=== PATIENT | male | born 1960 | race Caucasian/White ===

== ENCOUNTER 2024-12-03 06:22 | Observation (INO) ==
--- NOTE | 2024-11-04 14:08 | PAT Medication Instructions ---
Medication Instructions Date of Service November 04, 2024 Home Medications alprazolam 0.5 mg tablet (Xanax) 0.5 mg PO BID PRN Anxiety omega 2-kyd-dng-fish oil 1,000 mg (120 mg-180 mg) capsule (Fish Oil) 1 cap PO QAM ramipril 5 mg capsule 5 mg PO QAM simvastatin 40 mg tablet 40 mg PO HS zinc 50 mg tablet 50 mg PO QAM ascorbic acid (vitamin C) 500 mg tablet (Vitamin C) 500 mg PO QAM aspirin 81 mg tablet,delayed release 81 mg PO HS cholecalciferol (vitamin D3) 125 mcg (5,000 unit) tablet (Vitamin D3) 125 mcg PO QAM vitamin B complex 1 tab PO QAM metoprolol succinate 25 mg tablet,extended release 24 hr 25 mg PO QAM tamsulosin 0.4 mg capsule 0.4 mg PO QAM MEDICATION INSTRUCTIONS: ASK your prescriber and surgeon aspirin 81 mg tablet,delayed release 81 mg PO HS STOP taking 2 weeks before surgery omega 7-jmy-npr-fish oil 1,000 mg (120 mg-180 mg) capsule (Fish Oil) 1 cap PO QAM DO NOT take the morning of surgery cholecalciferol (vitamin D3) 125 mcg (5,000 unit) tablet (Vitamin D3) 125 mcg PO QAM zinc 50 mg tablet 50 mg PO QAM ramipril 5 mg capsule 5 mg PO QAM ascorbic acid (vitamin C) 500 mg tablet (Vitamin C) 500 mg PO QAM vitamin B complex 1 tab PO QAM Take morning of surgery With a small sip of water, OTHERWISE NOTHING TO EAT OR DRINK AFTER MIDNIGHT: alprazolam 0.5 mg tablet (Xanax) 0.5 mg PO BID PRN Anxiety metoprolol succinate 25 mg tablet,extended release 24 hr 25 mg PO QAM tamsulosin 0.4 mg capsule 0.4 mg PO QAM Take evening before surgery alprazolam 0.5 mg tablet (Xanax) 0.5 mg PO BID PRN Anxiety simvastatin 40 mg tablet 40 mg PO HS Other Notes If you have any questions please call us at [phone] or [phone] or [phone] or [phone]
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
[2024-12-03] MEDS ORDERED: LARYING-O-JET KIT (LTA) ONE (06:28)
[2024-12-03] MEDS: ACETAMINOPHEN 500 MG TAB PO SCH (06:33)
[2024-12-03] MEDS: CeleBREX 200 MG CAP PO SCH (06:33)
[2024-12-03] MEDS: GABAPENTIN 300 MG CAP PO SCH (06:34)
[2024-12-03] MEDS ORDERED: PROPOFOL IV EMULSION 10 MG/ML 100 ML VIAL IV ONE ×2 (06:35→07:03)
[2024-12-03] MEDS ORDERED: PROPOFOL IV EMULSION 10 MG/ML 20 ML VIAL IV ONE (06:35)
[2024-12-03] MEDS ORDERED: SUCCINYLCHOLINE CHLORIDE 20 MG/ML 10 ML VIAL IV ONE (06:38)
[2024-12-03] MEDS ORDERED: LIDOCAINE 2% 2 ML VIAL/AMP(20MG/ML) INFIL ONE (06:38)
[2024-12-03] MEDS ORDERED: ROCURONIUM BROMIDE 10 MG/ML 5 ML VIAL IV ONE (06:38)
[2024-12-03] MEDS ORDERED: MIDAZOLAM HCL 1 MG/ML 2ML VIAL ONE (06:42)
[2024-12-03] MEDS ORDERED: DEXAMETHASONE SOD INJ 4 MG/ML VIAL ONE (06:42)
[2024-12-03] MEDS ORDERED: KETAMINE HCL 10MG/ML SYR ONE (06:42)
[2024-12-03] MEDS ORDERED: GLYCOPYRROLATE 0.2 MG/ML VIAL ONE (06:42)
[2024-12-03] MEDS ORDERED: PHENYLEPHRINE HCL 10 MG/ML VIAL ONE (06:50)
[2024-12-03] MEDS ORDERED: REMIFENTANIL HCL 1 MG VIAL IV ONE (06:57)
[2024-12-03] MEDS: LR 15ML/HR IV SCH (07:20)
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
[2024-12-03] MEDS: LR 60ML/HR IV SCH (07:31)
--- NOTE | 2024-12-03 07:49 | History & Physical Bridge Note ---
Date of Service December 03, 2024 History & Physical Bridge Note I have examined the patient, reviewed the History & Physical and in the interval since the performance of the History & Physical I have noted the following changes of clinical significance: no changes noted
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
[2024-12-03] MEDS: ceFAZolin 330 MG/ML 1 GM VIAL ONE (08:45)
[2024-12-03] MEDS ORDERED: HYDROmorphone INJ 2 MG/ML SYR/VIAL ONE (08:52)
[2024-12-03] MEDS ORDERED: ONDANSETRON INJ 2 MG/ML 2 ML VIAL ONE (09:03)
[2024-12-03] MEDS ORDERED: SUGAMMADEX SODIUM 200 MG/2 ML VIAL IV ONE (09:05)
--- NOTE | 2024-12-03 09:13 | Operative Report ---
Post Operative Report Pre & Post Diagnosis Operation Date: 12/03/24 07:45 Pre-Op Diagnosis: Cervical spinal stenosis with myeloradiculopathy same Post-Op Diagnosis: Same I identified the patient and participated in the time-out.: Yes Procedure Operation Date: 12/03/24 07:45 Actual Procedures #1 anterior cervical discectomy C4-C5 with bilateral foraminotomies. #2 anterior cervical disease to C4-5. #3 placement Spira 8 mm cage filled with os design bone graft C4-C5. #4 application of cage completed screws across C4-C5. Surgeon Fernando Morales, Shift Mechanic Gabriela Sorenson Estimated Blood Loss 10 Findings Consistent with Post-Op Diagnosis Specimens None Indications This is a 64-year-old male presents publish diagnosis of failed course of nonoperative care is here for surgical invention. Description of Procedure Patient was met with identified informed consent obtained. Patient was then taken to the operative suite underwent the patient placed in supine position on the Neal table with the head [place] head ordered. All bony prominences well-padded I suspected to ensure no external pressure placed upon them. This point the anterior cervical spine was prepped and draped in normal sterile fashion. The assistance of fluoroscopy identified the C4-C5 disc base and a transverse incision was placed on the right anterior aspect of the cervical spine overlying his region. Blunt dissection with the assistance of bipolar cautery performed down to exposing the anterior cervical spine at C4-C5. Sterile tray and retractors placed. Then performed a complete discectomy of C4- C5 out to the uncovertebral joints bilaterally. Briggs distraction pins utilized to assist in visualization. Removed all posterior annular fibers longitudinal ligament bilateral foraminotomies were performed. Endplates burred to subcortical bony bone and 9 mm spiral cage filled with os design bone graft tapped in position. Distractor apparatus was removed. All anterior osteophytes burred to a smooth cortical surface and a K2 M plate and screws applied with the assistance of fluoroscopy. Incision was then copiously irrigated explored to ensure no damage surrounding structures remaining bleeding. 10 round MASSIEL drain inserted. The incision was then closed with 2 Vicryl in the fascia and a 4 Monocryl for final skin closure. Steri-Strips and sterile dressing placed. Patient waken taken to PACU in stable condition. Please note spinal cord monitoring visualized at the procedure no changes noted. Gabriela Sorenson was present at the entire surgery and on the patient positioning complex portion of the surgery and final skin closure. I attest to the content of the Intraoperative Record and any orders documented therein. Any exceptions are noted below.
[2024-12-03] MEDS ORDERED: ePHEDrine sulfate 50 MG/5 ML SYR ONE (09:18)
[2024-12-03] MEDS ORDERED: HYDROmorphone INJ 1 MG/ML SYRINGE IV PRN (09:20)
[2024-12-03] MEDS ORDERED: ONDANSETRON INJ 2 MG/ML 2 ML VIAL IV PRN ×2 (09:20→12:28)
[2024-12-03] MEDS ORDERED: HYDROmorphone INJ 2 MG/ML SYR/VIAL IV PRN (09:20)
[2024-12-03] MEDS ORDERED: ATROPINE SULFATE 0.1 MG/ML 10ML SYR IV PRN (09:20)
[2024-12-03] MEDS: FLOSEAL HEMOSTATIC MATRIX 10ML TOP ONE (09:22)
--- NOTE | 2024-12-03 10:02 | Fluoroscopy Report ---
FL cervical 2-3V CLINICAL HISTORY: C4-5 DISCECTOMY FUSION COMPARISON STUDY: No previous studies for comparison. Fluoroscopy time: 11 seconds. Number of fluoroscopic images: 2. Ka,r: 1.48 mGy. FINDINGS: Fluoroscopy was provided during C4-C5 anterior discectomy and fusion with interbody spacer placement. A linear radiodensity consistent with surgical sponge is present on the initial image. Thi s is not evident on the subsequent image. Surgical drain is in place. IMPRESSION: Fluoroscopy provided during C4-C5 anterior discectomy and fusion. ACT 112: Negative or not required by law. Electronically signed by: Tello Cox M.D. 12/03/2024 10:01 AM
--- NOTE | 2024-12-03 11:09 | Anesthesiology Progress Note ---
Date of Service December 03, 2024 Anesthesia Post Procedure Vital Signs Vital Signs: Temp Pulse Resp BP Pulse Ox O2 Del Method O2 Flow Rate 12/03/24 10:45 36.3 C L 61 12 124/63 94 Nasal Cannula 2 12/03/24 10:35 59 L 10 L 125/68 96 Nasal Cannula 2 12/03/24 10:25 62 14 114/71 96 Nasal Cannula 2 12/03/24 10:15 74 18 135/59 L 95 Room Air 12/03/24 10:05 70 13 132/65 96 Oxymask 2 12/03/24 09:55 67 10 L 116/56 L 96 Oxymask 2 12/03/24 09:45 70 16 127/61 98 Oxymask 4 12/03/24 09:37 36.0 C L 76 15 118/63 98 Oxymask 6 12/03/24 06:16 36.5 C 67 20 136/87 94 Room Air Pain Intensity Posterior Neck: Pain Intensity: 4 Transfer of Care Handoff Completed per policy Notes Mental Status: alert / awake / arousable Patient Amnestic to Procedure: Yes Nausea / Vomiting: adequately controlled Pain: adequately controlled Airway Patency, RR, SpO2: stable & adequate BP & HR: stable & adequate Hydration State: stable & adequate Anesthetic Complications: no major complications apparent and Pt Satisfied with anesthetic care
[2024-12-03] MEDS ORDERED: DO NOT ADMINISTER PNEUMOCOCCAL VACCINE PRN (12:28)
[2024-12-03] MEDS ORDERED: SOD PHOSPHATE/SOD BIPHOSPHATE ENEMA 132 ML BTL PR PRN (12:28)
[2024-12-03] MEDS ORDERED: MAGNESIUM HYDROXIDE SUSP 30 ML UDC PO PRN (12:28)
[2024-12-03] MEDS ORDERED: ALUMINUM/MAGNESIUM SUSP 30 ML UDC PO PRN (12:28)
[2024-12-03] MEDS ORDERED: RACEPINEPHRINE 2.25% NEBU SOLN 0.5 ML VIAL INH PRN (12:28)
[2024-12-03] MEDS ORDERED: PROMETHAZINE 12.5 MG/50.5 ML BAG IV PRN (12:28)
[2024-12-03] MEDS ORDERED: LORazepam 0.5 MG TAB PO PRN (12:28)
[2024-12-03] MEDS ORDERED: FAMOTIDINE 20 MG TAB PO PRN (12:28)
[2024-12-03] MEDS ORDERED: NALOXONE HCL 0.4 MG/1 ML VIAL/CARP IV PRN (12:28)
[2024-12-03] MEDS ORDERED: HYDROmorphone INJ 0.5 MG/0.5 ML SYR IV PRN (12:28)
[2024-12-03] MEDS ORDERED: ONDANSETRON 4 MG OD TAB PO PRN (12:28)
[2024-12-03] MEDS ORDERED: DO NOT ADMINISTER FLU VACCINE PRN (12:28)
[2024-12-03] MEDS ORDERED: METOCLOPRAMIDE HCL INJ 5 MG/ML 2 ML VIAL IV PRN (12:28)
[2024-12-03] MEDS ORDERED: diphenhydrAMINE Capsule 25 MG CAP PO PRN (12:28)
[2024-12-03] MEDS ORDERED: dexAMETHasone 8 MG in SYRINGE 0 ML IV PRN (12:28)
[2024-12-03] MEDS: LACTATED RINGER'S 1,000 ML IV SCH (12:51)
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
[2024-12-03] MEDS: HYDROmorphone INJ 1 MG/ML SYRINGE IV PRN (13:43)
[2024-12-03] MEDS ORDERED: ACETAMINOPHEN 1,000 MG/100 ML VIAL IV PRN (14:00)
[2024-12-03] MEDS: dexAMETHasone 6 MG in SYRINGE 0 ML IV SCH (14:52)
[2024-12-03] MEDS: ACETAMINOPHEN 500 MG TAB PO PRN (19:17)
[2024-12-03] MEDS: DOCUSATE SODIUM/SENNA 50/8.6MG TAB PO SCH (21:11)
[2024-12-03] MEDS: ASPIRIN 81 MG ECTAB PO SCH (21:11)
[2024-12-03] MEDS: SIMVASTATIN 40 MG TAB PO SCH (21:12)
[2024-12-04 03:12] VITALS: RESP 18
[2024-12-04] MEDS: POLYETHYLENE (MIRALAX) 17 GM PACK PO SCH (06:03)
[2024-12-04 07:22] LABS: Hematocrit (blood only) 46.6 % (42.0-52.0); Hemoglobin 15.7 g/dl (14.0-18.0); Mean Corpuscular Hemoglobin 31.0 pg (25.0-34.0); Mean Corpuscular Volume 91.9 fL (80.0-100.0); Platelet Count 192 K/uL (130-400); RDW Standard Deviation 45.0 fL (36.4-46.3); Red Blood Count 5.07 M/uL (4.70-6.10); White Blood Count 10.63 K/ul (4.8-10.8)
--- NOTE | 2024-12-04 07:40 | Hospitalist Progress Note ---
Date of Service December 04, 2024 Assessment & Plan (1) Cervical stenosis of spinal canal: (2) Status post cervical spinal fusion: (3) CAD (coronary artery disease): (4) Hypertension: (5) Hyperlipidemia: (6) Anxiety: (7) Sleep apnea: Plan 64y/o M with PMHx significant for inferior STEMI and obstructive CAD s/p stenting (2002), hypertension, hyperlipidemia, polycythemia vera, MEREDITH not on CPAP, fatty liver, anxiety and cervical spinal stenosis who underwent anterior cervical discectomy and fusion of C4-C5 on 12/03/[address] Morales. We have been consulted for postoperative medical management. Cervical stenosis of spinal canal s/p C4-C5 ACDF POD#1 anterior cervical discectomy and fusion of C4-C5 on 12/03/[address] Morales Activity level, pain control, DVT prophylaxis, bowel regimen, wound/drain care per primary team Encourage incentive spirometer CAD Hyperlipidemia Continue aspirin, metoprolol, ramipril and simvastatin Hypertension Continue ramipril and amlodipine Anxiety Continue alprazolam PRN DVT Prophylaxis: As per primary service Disposition: DC planning as per primary service --> pt mentioned being DC today Thank you for this consultation. We will continue to follow this patient with you. A member of the [facility]ist team is available 31/10 via the role in Tiger[employer] - please don't hesitate to reach out with questions. Patient seen in collaboration with Dr. Matthews. Please see addendum. I spent a total of 26 minutes coordinating, documenting, and providing care for this patient excluding time spent in the performance of separately billed services or time spent by another provider/QHP. This included personally reviewing all current laboratories and imaging studies, medical reconciliation, outpatient chart review and discussion with specialists. This chart was completed in part utilizing Speech Voice Recognition Software. Grammatical errors, random word insertions, pronoun errors, and incomplete sentences are an occasional consequence of this system due to software limitations, ambient noise, and hardware issues. Any formal questions or concerns about the content, text, or information contained within the body of this dictation should be directly addressed to the provider for clarification. Admission and Anticipated Discharge Date Admission Date: December 03, 2024 Supervising Physician Co-Signing Physician Notes Patient seen and examined Agree with findings and plan as detailed by Elissa Hartmann PA-C Subjective Pt seen and examined in room 320-1. Feeling well postoperatively, pain adequately controlled. Denies any SOB or difficulty breathing. Mentions possible discharge home today per his prior discussion with Dr. Morales. Discussed his labs from this AM. Review of Systems Review of Systems: At least ten systems reviewed and negative, except as noted in the subjective section. Physical Exam Physical Exam: General: WD/WN, NAD, sitting up in chair at bedside, pleasant, A&Ox3 HEENT: Oropharynx normal, C-collar in place, surgical dressing on anterior aspect of neck C/D/I Respiratory: Normal respiratory effort, CTAB Cardiovascular: RRR, normal peripheral pulses, no BLE edema Abdomen/GI: Normal bowel sounds, soft, nontender to palpation in all quadrants Extremities/MSK: No cyanosis or clubbing, extremities motor strength intact, moves all extremities Neurologic: No overt focal deficits, CN's II-XI not formally tested but appear grossly intact bilaterally Results & Data Results & Data Vital Signs (Past 12 Hours) Vital Signs Temp Pulse Resp BP Pulse Ox O2 Del Method O2 Flow Rate 12/04/24 07:18 71 18 98 Room Air 12/04/24 07:11 37 C 71 18 127/73 95 Room Air 12/04/24 04:58 36.6 C 72 18 130/72 97 Nasal Cannula 1 12/04/24 02:58 36.4 C L 79 18 139/70 97 Nasal Cannula 1 12/04/24 02:30 69 17 95 Nasal Cannula 2 12/04/24 00:52 36.6 C 63 18 129/66 96 Nasal Cannula 1 12/03/24 22:58 36.4 C L 74 18 144/72 H 95 Nasal Cannula 1 12/03/24 22:55 74 18 95 Nasal Cannula 2 12/03/24 20:55 36.5 C 71 18 109/60 94 Nasal Cannula 1 12/03/24 20:26 73 18 95 Nasal Cannula 2 Laboratory Results Short CBC 12/04/24 Range/Units 06:23 WBC 10.63 (4.8-10.8) K/ul Hgb 15.7 (14.0-18.0) g/dl Hct 46.6 (42.0-52.0) % Plt Count 192 (130-400) K/uL BMP 08/27/25 06:23 Sodium 136 Potassium 4.4 Chloride 102 Carbon Dioxide 28 BUN 17 Creatinine 0.92 Glucose 139 H Calcium 8.9
[2024-12-04 07:44] LABS: Anion Gap 6.0 (3-11); Blood Urea Nitrogen 17.0 mg/dl (6-23); Calcium 8.9 mg/dl (8.6-10.3); Carbon Dioxide 28.0 mmol/L (21-32); Chloride 102.0 mmol/L (98-107); Creatinine Clr Calc Pharmacy 104.2 ml/min; Glucose 139.0 mg/dl (70-99(Fasting)); Potassium 4.4 mmol/L (3.5-5.1); Sodium 136.0 mmol/L (136-145)
[2024-12-04] MEDS ORDERED: NON-FORMULARY MEDICATION (Zinc 50 mg Tablet) PO SCH (09:00)
[2024-12-04 09:05] VITALS: TEMP 97.9
[2024-12-04] MEDS: ENALAPRIL MALEATE 10 MG TAB PO SCH (09:08)
[2024-12-04] MEDS: CHOLECALCIFEROL 125 MCG (5,000 UNITS) TAB PO SCH (09:09)
[2024-12-04] MEDS: TAMSULOSIN HCL 0.4 MG CAP PO SCH (09:09)
[2024-12-04] MEDS: ASCORBIC ACID 500 MG TAB PO SCH (09:09)
[2024-12-04] MEDS: METOPROLOL SUCC 25MG EXT REL TAB PO SCH (09:09)
[2024-12-04] MEDS: VITAMIN B COMPLEX TAB PO SCH (09:11)
--- NOTE | 2024-12-04 10:57 | Discharge Summary ---
Date of Service December 04, 2024 Admission HPI Per Admitting Provider This is a 64-year-old male who presents with chronic neck and arm pain after failing course of nonoperative care is here for surgical invention. Principal Diagnosis Cervical spinal stenosis with myeloradiculopathy Discharge Data Allergies Allergy/AdvReac Type Severity Reaction Status Date / Time No Known Allergies Allergy Verified 12/03/24 06:39 Consultations 12/03/24 12:28 Consult Hospitalist Routine Procedures Performed Operation Date: 12/03/24 07:45 Actual Procedures p C4-C5 Anterior Cervical Discectomy Fusion, Spinal Cord Monitoring(Not Applicable) - Fernando Morales DO Ordered Studies 12/03/24 07:45 FL cervical 2-3V Routine Hospital Course (1) Cervical stenosis of spinal canal: Patient underwent anterior cervical discectomy and fusion tolerated so was taken to orthopedic for postoperative. Postop believe swallowing well. No hoarseness. Arm symptoms improved. Pain controlled. Excellent strength testing. Subsidy discharged home. Discharge orders instructions from the chart for further review. Total Time Total Time Spent Total Time Spent (In Minutes): 20 minutes Discharge Plan Discharge Items Patient Disposition: Home - Self-Care Reason For Visit: Cervical Spondylosis without Myelopathy, Cervical Discharge Diagnosis: Cervical spondylosis with myelopathy Activity: As commented below Non-emergency contact: Primary Care Provider Call non-emergency contact if: you have any medication questions Follow-up/Referrals: Meg Ponce PA-C [Primary Care Provider] - Diet: Regular Addtl Attending Provider Instructions: ACTIVITY RECOMMENDATIONS: SELF CARE INSTRUCTIONS AFTER CERVICAL FUSIONS 1. No smoking. Smoking drastically decreases the chance of a solid fusion. 2. No bending, lifting more than 5 pounds, or twisting (roll like a log when turning in bed). 3. You may shower 3 days after surgery. Thoroughly dry wound. Do not soak in the tub. 4. Cervical collar: Must be worn at all times including sleeping. You may remove the brace only to bath, eat and if you are sitting in a recliner. 5. Please walk as much as you can for exercise. Gradually increase the distance that you walk as your endurance increases. 6. You may return to previous diet. SPECIAL CARE INSTRUCTIONS: VERY IMPORTANT TO READ AND REVIEW A. Do not take any anti-inflammatory medications (i.e. Indocin, Advil, Aspirin, Naprosyn, Aleve, Motrin, etc.) as these may inhibit the chance of a solid fusion. Tylenol is okay to take. B. Your surgical incision has been closed with a cosmetic suture under the skin that will dissolve in about 6 weeks. In 14 days, you can use a pair of clean scissors and cut the suture that is left outside of the skin at the ends of your incision. C. Complications are uncommon, but please contact us if you have any signs or symptoms of: 1. wound infection (fever higher than 102.5 degrees F, redness, separation of wound, drainage, or increasing pain from the incision) 2. blood clots in legs (pain, swelling, redness and warmth in legs) 3. urinary tract infection (fever higher than 102.5 degrees, burning upon urination or increased frequency of urination) 4. nerve problems (inability to walk on your toes or heels, numbness, loss of bowel or bladder control) 5. any other symptoms that concern you. D. Please call the office at if you have any concerns or questions about your operation or recovery. MANAGING PAIN AFTER SPINAL SURGERY 1. Narcotic medication is intended for short-term use and will be provided for surgical pain. Surgical pain usually lasts for a period of 4-6 weeks. Narcotic medication includes Percocet, Vicodin, Darvocet, Tylenol #3 or Lortab. 2. Longer-term pain is more appropriately treated with non-narcotic medication such as Tylenol ES. 3. Muscle spasm is not appropriately treated with narcotics. Muscle relaxers such as Soma, Flexeril or Skelaxin can be used along with Tylenol ES. 4. Remember that we all live with some "aches and pains". This is not unusual or uncommon after an injury or as we get older. 5. We will provide appropriate medication within the normal guidelines of their prescribed use. We will also be very cautious and aware of potential abuse and extended duration of patients' medication needs. 6. Please allow 2-3 days to process refills. Prescriptions will not be mailed but must be picked up at the office. FOLLOW UP VISIT: Keep your scheduled follow-up appointment. Any questions, please call the office at . Pending Studies at Discharge: No Stand-Alone Forms: My [facility], Smoking Cessation Medications and DC Order Prescriptions: New tramadol 50 mg tablet 50 mg PO Q6H PRN (Reason: pain, moderate) Qty: 30 0RF oxycodone 5 mg tablet 5 mg PO Q6H PRN (Reason: pain) Qty: 30 0RF Rx Instructions: Oxycodone for severe pain tramadol for moderate pain Continued simvastatin 40 mg Tablet 40 mg PO HS alprazolam [Xanax] 0.5 mg Tablet 0.5 mg PO BID PRN (Reason: Anxiety) ramipril 5 mg Capsule 5 mg PO QAM omega [id number] oil [Fish Oil] 1,000 mg (120 mg-180 mg) Capsule 1 cap PO QAM zinc 50 mg Tablet 50 mg PO QAM B Complex Tablet Extended Release 1 tab PO QAM aspirin [Aspir-81] 81 mg Tablet,Delayed Release (Dr/Ec) 81 mg PO HS ascorbic acid (vitamin C) [Vitamin C] 500 mg Tablet 500 mg PO QAM cholecalciferol (vitamin D3) [Vitamin D3] 125 mcg (5,000 unit) Tablet 125 mcg PO QAM tamsulosin 0.4 mg Capsule 0.4 mg PO QAM metoprolol succinate 25 mg Tablet Extended Release 24 Hr 25 mg PO QAM amlodipine 2.5 mg Tablet 2.5 mg PO DAILY Discharge Orders: Discharge Order (Routine); Ordered 12/04/24 Ordered By: Fernando Morales Admission Data Admit Date/Time: 12/03/24 09:16 Attending Provider: Fernando Morales Admit Provider: Fernando Morales Primary Care Provider: Meg Ponce. Other Providers: Jose Cruz Kirby
[2024-12-04 11:11] VITALS: BP 114/66; PULSE 65; O2SAT 95
== END 2024-12-04 12:18 | disposition home or self-care (01) ==
LOC: ASU 06:22 → INTOOBSV 09:16 → PACUINP 09:16 → 3E 12:24